=== PATIENT | female | born 1985 | race Two or more races ===

== ENCOUNTER 2017-08-07 16:14 | Outpatient (CLI) | payer MEDICAID | END 2017-08-07 23:59 | LOC: LAB.R 16:14 | PROVIDERS: ATTEND Registered Nurse | DX: Z36.9 Encounter for antenatal screening, unspecified (principal) | CPT/HCPCS: 87081 ==

== ENCOUNTER 2017-08-21 12:14 | Outpatient (CLI) | payer MEDICAID ==
[2017-08-21 12:33] LABS: BILIRUBIN,URINE NEGATIVE (NEGATIVE); GLUCOSE, URINE (UA) NEGATIVE (NEGATIVE); KETONES,URINE (UA) NEGATIVE (NEGATIVE); LEUKOCYTE ESTERASE, URINE NEGATIVE (NEGATIVE); NITRITE,URINE NEGATIVE (NEGATIVE); OCCULT BLOOD,URINE NEGATIVE (NEGATIVE); PROTEIN,URINE NEGATIVE (NEGATIVE); UROBILINOGEN,URINE 0.2 (NORMAL) E.U./dL (NORMAL)
[2017-08-21 12:39] LABS: BASOPHILS % (AUTO) 0.6 %; EOSINOPHILS # (AUTO) 0.1 10^3/uL (0.0-0.7); EOSINOPHILS % (AUTO) 1.1 %; HGB - HEMOGLOBIN 11.8 g/dL (12.0-16.0); LYMPHOCYTES # (AUTO) 1.6 10^3/uL (1.5-3.5); MEAN CORPUSCULAR HEMOGLOBIN 32.3 pg (27.0-31.0); MEAN CORPUSCULAR HGB CONC 33.6 g/dL (32.0-36.0); MEAN CORPUSCULAR VOLUME 96.1 fL (81.0-99.0); MEAN PLATELET VOLUME 8.3 fL (7.9-10.8); MONOCYTES # (AUTO) 0.5 10^3/uL (0.0-1.0); MONOCYTES % (AUTO) 5.9 %; NEUTROPHILS # (AUTO) 5.5 10^3/uL (1.5-6.6); NEUTROPHILS % (AUTO) 71.4 %; PLT - PLATELET COUNT 298 10^3/uL (130-450); RED BLOOD COUNT 3.66 10^6/uL (4.20-5.40); RED CELL DISTRIBUTION WIDTH 12.9 % (12.0-15.0); WHITE BLOOD COUNT 7.8 x10^3/uL (4.8-10.8)
[2017-08-21 12:45] LABS: CLARITY,URINE CLEAR (CLEAR)
[2017-08-21 12:50] LABS: RBC,URINE None Seen /HPF (0-5)
[2017-08-21 12:51] LABS: BACTERIA,URINE Rare /HPF (None Seen); SQUAMOUS EPITHELIAL CELL,UR MANY Squamous (<= Few)
[2017-08-22 13:16] LABS: HIV AG/AB 4TH GEN NON-REACTIVE (NON-REACTIVE)
[2017-08-22 14:32] LABS: HEPATITIS B SURFACE ANTIGEN NON-REACTIVE (NON-REACTIVE); HEPATITIS C ANTIBODY NON-REACTIVE (NON-REACTIVE)
== END 2017-08-21 12:15 | disposition home or self-care (01) ==
LOC: LAB 12:14
PROVIDERS: ATTEND Registered Nurse
DX: Z36.9 Encounter for antenatal screening, unspecified (principal); I48.91 Unspecified atrial fibrillation
CPT/HCPCS: 36415; 81001; 81599; 85025; 86592; 86762; 86803; 86850; 86900; 86901; 87340; 87389

== ENCOUNTER 2017-08-26 10:53 | Outpatient (CLI) | payer MEDICAID ==
[2017-08-26 13:29] VITALS: BP 106/63
== END 2017-08-26 12:25 | disposition home or self-care (01) ==
LOC: WFO 10:53 → FBP 11:00 → WFO 12:25
PROVIDERS: ATTEND Nurse Practitioner Obstetrics & Gynecology
DX: O47.1 False labor at or after 37 completed weeks of gestation (principal); Z3A.39 39 weeks gestation of pregnancy
CPT/HCPCS: 99212

== ENCOUNTER 2017-08-28 21:27 | Outpatient (CLI) | payer MEDICAID ==
[2017-08-28 21:40] VITALS: BP 117/70
== END 2017-08-28 22:48 | disposition home or self-care (01) ==
LOC: WFO 21:27 → FBP 21:29 → WFO 22:48
PROVIDERS: ATTEND Nurse Practitioner Obstetrics & Gynecology
DX: O47.1 False labor at or after 37 completed weeks of gestation (principal); Z3A.39 39 weeks gestation of pregnancy
CPT/HCPCS: 99213

== ENCOUNTER 2017-09-01 00:12 | Inpatient (IN) | payer MEDICAID ==
[2017-09-01] MEDS ORDERED: fentaNYL 100 MCG/2 ML VIAL IVP PRN (01:07)
[2017-09-01] MEDS ORDERED: ONDANSETRON 4 MG/2 ML VIAL IVP PRN ×2 (01:07→02:40)
[2017-09-01] MEDS ORDERED: OXYTOCIN/SODIUM CHLORIDE 250 ML IV ONE ×2 (01:07→04:14)
[2017-09-01] MEDS ORDERED: SODIUM CHLORIDE FLUSH 0.9% 10 ML SYRINGE IVP PRN (01:07)
--- NOTE | 2017-09-01 01:16 | HISTORY & PHYSICAL EXAMINATION ---
Admit History - Instructions [place]/Slash: -Left hand click circles element as positive or present. -Right hand click slashes element as negative or not present. - Visit Reason Visit Reason: Membranes rupture (for CAF @ 00:00) - : 4 Parity: 1 Premature: 0 Ectopic: 0 : 2 Care: positive: [facility] (beginning @ 36 weeks; received PNC in [place] beginning @ 12 weeks' gestation; records contain a series of 4 ultrasounds only , dated by 12 week US w/ MIGUEL 09/01/2017) Risk/History: positive: No care (limited PNC), Other (hx IUFD) Smoking Status: Never smoker - Mother's Labs Mother's Blood Type: positive: A Mother's RH: positive: Positive GBS: positive: Group B Step Negative Rubella Status: positive: Immune Review of Systems - Constitutional Constitutional: reports: Fatigue. denies: Fever, Chills - Eyes Eyes: denies: Blurred vision, Spots in vision - Cardiovascular Cariovascular: denies: Irregular heart rate, Palpitations, Chest pain, Edema - Respiratory Respiratory: denies: Cough, SOB at rest, SOB with exertion - Gastrointestinal Gastrointestinal: reports: Abdominal pain (with uterine contractions). denies: Constipation, Diarrhea, Change in bowel habits, Nausea, Vomiting - Genitourinary Genitourinary: reports: Frequency, Urgency. denies: Dysuria - Musculoskeletal Musculoskeletal: reports: Back pain. denies: Muscle pain, Muscle aches - Integumentary Integumentary: denies: Rash, Pruritis, Lesions - Neurological Neurological: denies: General weakness, Focal weakness, Headache, Dizziness - Psychiatric Psychiatric: reports: Anxiety. denies: Depression - All Other Systems All Other Systems: reports: Other (+LOF, beginning at 00:00, + discomfort w/ uterine contractions, +FM) Physical - Abdominal Exam Contraction Frequency (min/apart): 4 Contraction Intensity: positive: Mild to moderate Uterine Resting Tone: positive: Soft - Monitoring Heart Rate Baseline: 130 Strip Review: positive: Category I - Presentation Presentation: positive: Vertex - Vaginal Exam Membranes: positive: Membranes ruptured Dilation (in cm): 5-6 Effacement (%): 80 Station: positive: -1 Cervical Position: positive: Midposition (per RN) - Speculum Exam Speculum Exam Performed: positive: No Findings: positive: Gross leak, Nitrazine - Other Notes Labor Progress Note/Additional Text: Elida Alba is a 32 y/o at 40 weeks' gestation by 12 week US who presented for care late in her @ 36 weeks' gestation. She received some care in [place] prior to moving to [facility], where she attended 4 care visits. Her records consist solely of a series of 4 ultrasounds, which did not demonstrate any placental or abnormalities. She presents this evening w/ complaint of painful uterine contractions & LOF beginning at 00:00. Her labs have been unremarkable, although she did not have gtt performed & her diabetic status is unknown. She is Lithuanian- speaking only & her hx is notable for 2 prior IUFDs, one at 20 weeks' gestation & one at 24 weeks' gestation. PMH: unremarkable PSH: D&C x2, no complications, no other surgical outcome Obhx: SAB x2 20 weeks, 24 weeks, no complications; x1 8 years ago, 8#, no complications, unmedicated, male fetus Gynhx: Denies hx of STI, reports nl pap screening Sochx: Lithuanian-speaking only, from [facility]OB, recent relocation from [place] , denies drugs/ETOH/smoking, living w/ aunt, unemployed, denies DV PE: GEN: AAOX3, MODERATELY UNCOMFORTABLE GRAVID FEMALE HEENT: GROSSLY NORMOCEPHALIC/ATRAUMATIC LUNGS: CTA B/L T/O HEART: RRR NLS1S2, NO MURMUR ABD: GRAVID, NT, ND, FETUS LONGITUDINAL, CEPHALIC PRESENTATION, EFW 6-7# : NO LESION, GROSS LEAKAGE OF CAF, SVE PER RN 5-6/80/-1 OB: EFM: BL 130BPM, +ACCELS, NO DECELS, MOD DARCIE; TOCO: UCS Q 4 MIN, PALP MILD MS: FROM T/O, NO DEFORMITY, NO ERYTHEMA/EDEMA SKIN: WARM, WELL-PERFUSED, C/D/I W/O LESION NEURO: NO FOCAL DEFICIT PSYCH: +ANXIETY, NO DEPRESSION, FRENCH-SPEAKING ONLY, PLEASANTLY CONVERSANT Plan for Labor - Plan For Labor I expect patient to be DC'd or transferred within 96 hours.: Yes Plan for Labor: 1. Admit 2. Admission labs/insert IV 3. Epidural PRN per pt request, analgesia PRN per pt request 4. Reassess cervical status x4 hours, earlier PRN 5. Anticipate
[2017-09-01] MEDS ORDERED: LACTATED RINGERS 1,000 ML IV ONE (01:25)
[2017-09-01 01:43] LABS: BASOPHILS # (AUTO) 0.1 10^3/uL (0.0-0.1); BASOPHILS % (AUTO) 0.9 %; EOSINOPHILS # (AUTO) 0.1 10^3/uL (0.0-0.7); EOSINOPHILS % (AUTO) 1.9 %; HGB - HEMOGLOBIN 11.5 g/dL (12.0-16.0); LYMPHOCYTES # (AUTO) 2.1 10^3/uL (1.5-3.5); LYMPHOCYTES % (AUTO) 27.2 %; MEAN CORPUSCULAR HEMOGLOBIN 31.9 pg (27.0-31.0); MEAN CORPUSCULAR HGB CONC 33.3 g/dL (32.0-36.0); MEAN CORPUSCULAR VOLUME 95.9 fL (81.0-99.0); MEAN PLATELET VOLUME 9.1 fL (7.9-10.8); MONOCYTES # (AUTO) 0.5 10^3/uL (0.0-1.0); MONOCYTES % (AUTO) 6.5 %; NEUTROPHILS # (AUTO) 4.8 10^3/uL (1.5-6.6); NEUTROPHILS % (AUTO) 63.5 %; PLT - PLATELET COUNT 300 10^3/uL (130-450); RED BLOOD COUNT 3.61 10^6/uL (4.20-5.40); RED CELL DISTRIBUTION WIDTH 13.1 % (12.0-15.0); WHITE BLOOD COUNT 7.6 x10^3/uL (4.8-10.8)
--- NOTE | 2017-09-01 01:43 | PROVIDER PROGRESS NOTE ---
Labor Progress Note - Uterine Monitoring Uterine Monitoring Mode: positive: External toco Contraction Frequency (min/apart): 3-4 Contraction Intensity: positive: Moderate to strong Uterine Resting Tone: positive: Soft - Monitoring Monitor Mode: positive: External ultrasound Heart Rate Baseline: 130 Heart Rate Variability: positive: Moderate (6-25 bmp) Accelerations: positive: Present, 15x15 Decelerations: positive: None Strip Review: positive: Category I - Vaginal Exam Dilation (in cm): 7 Effacement (%): 100 Station: 0 - Labor Progress Note Labor Progress Note/Additional Text: S: Elida is requesting epidural anesthesia & is very uncomfortable w/ her contractions. She is utilizing nitrous w/o significant analgesia as a result. O: AAOx3, very uncomfortable gravid female Ongoing LOF of CAF SVE: 7100/0 A: 32 y/o @ 40 weeks' gestation by 12 week US SROM x1.5 hours, afebrile, GBS negative FHTs cat I Limited care Inadequate pain control w/ self-administered nitrous oxide & desire for epidural anesthesia P: 1. Epidural placement now 2. Reassess cervical status x4 hours, earlier PRN
[2017-09-01] MEDS ORDERED: fent/BUPIV 2 MCG/0.125% 250 ML EP ONE (01:47)
[2017-09-01] MEDS ORDERED: LACTATED RINGERS 1,000 ML IV SCH (02:00)
--- NOTE | 2017-09-01 02:06 | PROVIDER PROGRESS NOTE ---
Labor Progress Note - Uterine Monitoring Uterine Monitoring Mode: positive: External toco Contraction Frequency (min/apart): 3-4 Contraction Intensity: positive: Moderate to strong Uterine Resting Tone: positive: Soft - Monitoring Monitor Mode: positive: External ultrasound Heart Rate Baseline: 130 Heart Rate Variability: positive: Moderate (6-25 bmp) Accelerations: positive: Present, 15x15 Decelerations: positive: Early Strip Review: positive: Category I - Labor Progress Note Labor Progress Note/Additional Text: Pt comfortable w/ epidural in place. Place rubin catheter until 2nd stage labor. Reassess cervical status x4 hours, earlier PRN. Encourage maternal rest. Anticipate .
[2017-09-01] MEDS ORDERED: BUPIVACAINE 0.25% PF 10 ML VIAL ONE (02:15)
[2017-09-01] MEDS ORDERED: NALBUPHINE 10 MG/ML AMP IVP PRN (02:40)
[2017-09-01] MEDS ORDERED: LACTATED RINGERS 500 ML IV ONE (02:40)
[2017-09-01] MEDS ORDERED: diphenhydrAMINE INJ 50 MG/ML VIAL IVP PRN (02:40)
[2017-09-01] MEDS ORDERED: NALOXONE 0.4 MG/ML VIAL IVP PRN (02:40)
[2017-09-01] MEDS ORDERED: ePHEDrine 50 MG/ML VIAL IVP PRN (02:40)
[2017-09-01] MEDS ORDERED: fent/BUPIV 2 MCG/0.125% 250 ML EP PRN (02:40)
[2017-09-01] MEDS ORDERED: METOCLOPRAMIDE 10 MG/2 ML VIAL IVP PRN (02:40)
[2017-09-01] MEDS ORDERED: MAGNESIUM HYDROXIDE 2,400 MG/30 ML UDC PO PRN (04:14)
[2017-09-01] MEDS ORDERED: WITCH HAZEL/GLYCERIN 1 EACH MED..PAD TOP PRN (04:14)
[2017-09-01] MEDS ORDERED: HYDROCORTISONE/PRAMOXINE 10 GM PR PRN (04:14)
[2017-09-01] MEDS ORDERED: HYDROCORTISONE 1% CREAM 28 GM TUBE PR PRN (04:14)
--- NOTE | 2017-09-01 04:20 | DELIVERY NOTE ---
Delivery Note - Labor Labor: positive: Spontaneous - Delivery Method Delivery Method: positive: Spontaneous vaginal delivery - Presentation Presentation: positive: Vertex, DELICIA - right occiput anterior - Nuchal Cord Nuchal Cord: positive: None - Anesthetic Anesthetic Type: - Amniotic Fluid Description Amniotic Fluid Description: positive: Clear - Episiotomy Type Episiotomy Type: positive: None - Laceration Laceration: positive: 2nd degree - Suture Suture Type: positive: Vicryl Suture Size: positive: 2-0 - Delivery Outcome Delivery Outcome: positive: Livebirth - : positive: Placed in direct skin contact with mother, Stimulated, Hoffman used [place] sex: positive: Female - Cord Cord: positive: 3 vessels - Placenta Placenta: positive: Intact, Spontaneous - Estimated Blood Loss Estimated Blood Loss (in cc): 150 - Post Delivery Events Post Delivery Events: positive: No post delivery events - Delivery Comments (Free Text/Narrative) Delivery Comments (Free Text/Narrative): Elida Alba is a 32 y/o [id number] who presented in active, spontaneous labor @ 40 weeks' gestation, having experienced SROM for CAF @ 00:00. She received epidural anesthesia per request w/ good effect & progressed spontaneously to complete dilatation @ 03:30, for a total 1st stage duration of 4.5 hours. She pushed w/ spontaneous urge & direction to viable female in DELICIA position over a 2nd degree perineal laceration @ 04:00, for a total 2nd stage duration of 30 minutes. FHTs were monitored electronically t/o & were consistently category I. vigorous w/ spontaneous, lusty cry. Placed to maternal abd for drying/stim. Apgars 9/9. Delayed cord clamping until cessation of pulsation, then cord clamped x2 by CNM, cut by FOB; 3VC noted, cord blood obtained. Active management of the third stage w/ Pitocin in IV fluids. Placenta del spontaneously & intact, Berta, @ 04:06, for a total 3rd stage duration of 6 minutes. FF @ U. Vagina & perineum inspected & 2nd degree perineal laceration noted; repaired under epidural anesthesia w/ 2-0 vicryl. Well-approximated & hemostatic. Mother & stable; weight pending. Infant nuzzling @ breast w/in 15 minutes of delivery.
[2017-09-01] MEDS: ACETAMINOPHEN 325 MG TABLET PO SCH ×3 (07:38→17:06)
[2017-09-01] MEDS ORDERED: SODIUM CHLORIDE FLUSH 0.9% 10 ML SYRINGE IVP SCH (09:00)
[2017-09-01] MEDS: DOCUSATE SODIUM 100 MG CAPSULE PO SCH ×2 (09:23→21:05)
[2017-09-01] MEDS: IBUPROFEN 800 MG TABLET PO SCH ×4 (09:23→22:02)
[2017-09-02] MEDS: ACETAMINOPHEN 325 MG TABLET PO SCH ×3 (00:03→12:22)
[2017-09-02] MEDS: IBUPROFEN 800 MG TABLET PO SCH ×2 (03:58→10:00)
[2017-09-02] MEDS: DOCUSATE SODIUM 100 MG CAPSULE PO SCH (10:00)
--- NOTE | 2017-09-02 14:37 | Discharge Plan ---
Discharge Plan Disposition: 01 Home, Self Care Condition: Good Diet: Regular Activity Restrictions: pelvic rest x6wks Shower Restrictions: No Driving Restrictions: No Weight Bearing: Full Weight Instruction Topics: Vaginal After, Breastfeed How To, Exercises Kegel No Smoking: If you smoke, Please STOP! Call for help. Follow-up with: Brianne Farrell, BRYAN, KIEL [Provider Admit Priv/Credential] -
--- NOTE | 2017-09-02 14:40 | DISCHARGE SUMMARY ---
"Discharge Summary Admit Date: 09/01/17 Discharge Date: 09/02/17 Discharging Provider: jignesh Code Status: Attempt Resuscitation Condition at Discharge: Good Discharge Disposition: 01 Home, Self Care Discharge Facility [facility]: [facility] - DIAGNOSES Admission Diagnoses: leakage of amniotic fluid active labor @ term Discharge Diagnoses with Status of Each Condition: 2nd degree perineal laceration w/ repair - HPI History of Present Illness: Stuart was admitted in spontaneous active labor w/ SROM. she received epidural anesthesia for discomfort & progressed rapidly to complete dilatation. she delivered a viable female vaginally over a second degree perineal laceration w/ o difficulty or complication. laceration repaired - CONSULTS | PROCEDURES Consultations: anesthesia Procedures: epidural placement repair of 2nd degree perineal laceration - HOSPITAL COURSE Hospital Course: , stuart is doing well. she is ambulating & voiding w/o difficulty. she is passing flatus & tolerating a regular diet. she reports no discomfort & minimal lochia rubra. she is well w/o complication & reports a previously successful experience. she denies hx of pp depression. she is not planning to return to work. she has excellent social support. she is able to fully articulate pp warning s/sx, including pp depression s/sx, and pp aftercare instructions. she is ready to leave the hospital. - ALLERGIES Allergies/Adverse Reactions: Allergies Allergy/AdvReac Type Severity Reaction Status Date / Time No Known Drug Allergies Allergy Verified 09/01/17 02:39 - MEDICATIONS Home Medications: Ambulatory Orders Medication Instructions Recorded Confirmed Ibuprofen [Motrin] 800 mg PO Q6H tablet 09/02/17 - PHYSICAL EXAM AT DISCHARGE General Appearance: positive: No acute distress, Alert Eyes Bilateral: positive: Normal inspection Respiratory: positive: Chest non-tender, No respiratory distress, Breath sounds nml Cardiovascular: positive: Regular rate & rhythm, No murmur Abdomen: positive: Non-tender, No distention, Other (FF U-2) Skin: positive: Color nml, No rash, Warm, Dry Extremities: positive: Non-tender, Full ROM, Nml appearance, No pedal edema. negative: Calf tenderness, Ever's sign/cords Neurologic/Psychiatric: positive: Oriented x3, CN's nml (2-12), Motor nml, Sensation nml, Mood/affect nml - LABS Result Diagrams: 09/01/17 00:50 - FOLLOW UP Follow Up: x1 week w/ Brianne Farrell CNM - TIME SPENT Time Spent in Discharge (Minutes): 15"
[2017-09-02 15:27] VITALS: BP 122/68
--- NOTE | 2017-09-02 16:14 | Labor Flowsheet ---
Labor Flowsheet Datetime Report Generated by CPN: 09/02/2017 16:13 Datetime: 09/02/2017 15:26 VITAL SIGNS NBP Sys/[place]/Mean (mmHg): 122 : 79 : 89 Pulse: 69 LaborFlag: Labor Datetime: 09/01/2017 04:09 SpO2 (%): 99 Datetime: 09/01/2017 04:01 Contraction Comments: poor tracing d/t maternal position during pushing Comments: poor tracing d/t maternal position during pushing, per provider remove US while mom pushe s Datetime: 09/01/2017 04:00 MEDICATIONS Medication Comments: pit running wide open Anesthesia Comments: epidural turned off Datetime: 09/01/2017 03:56 Monitor Interventions for FHR: Ultrasound Adjusted Datetime: 09/01/2017 03:54 UTERINE ACTIVITY Monitor Mode: External Frequency (min): 1-2.5 Duration (sec): 60-110 ASSESSMENT A Monitor Mode: External US FHR Baseline Rate : 130 Variability: Moderate 6-25 bpm Accelerations: 15X15 Decelerations: Variable Category: Category II STAGE 2 Pushing: Coached on Pushing; Urge to Push Pushing Position: Pushing with Contractions Pushing Progress: Descent with Pushing Datetime: 09/01/2017 03:53 I/O Interventions: Straight Cath (ml) @ Datetime: 09/01/2017 03:50 PATIENT CARE Patient Position/Activity: Semi-Fowlers Patient Care Comments: lithotomy COMMUNICATION Communication: Provider at Bedside Provider Notified (Name): Morghan Milagrosa Datetime: 09/01/2017 03:45 PAIN Pain Scale: 2 Pain Presence: Constant Pain Type: Contraction; Pressure Labor/Induction: Pushing Methods Datetime: 09/01/2017 03:37 Communication Comments: Pt complete and ready to push Datetime: 09/01/2017 03:36 VAGINAL EXAM Dilatation (cm): 10.0 Effacement (%): 100 Station: 2 Exam by: C.Anmolruddy, RN Datetime: 09/01/2017 03:29 Monitor Interventions for UA: [place] Adjusted Anesthesia Level Check: T7 Datetime: 09/01/2017 03:10 Pattern: Normal: <= 5 Contractions in 10 Minutes Datetime: 09/01/2017 03:04 MATERNAL ASSESSMENT Level of Consciousness: Fully Conscious Breath Sounds, Left: Clear and Equal Breath Sounds, Right: Clear and Equal Nausea/Vomiting: Denies Datetime: 09/01/2017 03:00 Pain Coping: Talking Through Contractions; Breathing Through Contractions Datetime: 09/01/2017 02:59 Quality: Strong Resting Tone (Palpate): Relaxed Datetime: 09/01/2017 02:25 Epidural Procedure: Loading Dose Datetime: 09/01/2017 02:23 Unit Routine: Medications Datetime: 09/01/2017 02:10 Stage of : Labor Datetime: 09/01/2017 01:45 Pain Location: Abdomen Pain Relief Measures: Comfort Measures Pain Assessment Comments: using nitrous during epidural placement Datetime: 09/01/2017 01:42 ANESTHESIA Anesthesia Plans: Epidural Epidural Positioning: Sitting Datetime: 09/01/2017 01:30 TEACHING Instructional Method: Verbal Plan of Care: Plan of Care Discussed
== END 2017-09-02 15:55 | disposition home or self-care (01) | DRG 775 ==
LOC: WFO 00:12 → FBP 00:14 → WFO 01:08 → FBP 01:08
PROVIDERS: ADMIT Registered Nurse; ATTEND Registered Nurse
PROC: 0KQM0ZZ Repair Perineum Muscle, Open Approach (ICD-10-PCS; principal; 2017-09-01)
PROC: 10E0XZZ Delivery of Products of Conception, External Approach (ICD-10-PCS; 2017-09-01)
DX: O70.1 Second degree perineal laceration during delivery (principal); Z37.0 Single live birth; Z3A.40 40 weeks gestation of pregnancy
CPT/HCPCS: 85025; 99213